=== PATIENT | female | born 2000 | race Caucasian/White ===

== ENCOUNTER 2022-04-09 12:33 | Emergency (ER) | payer OTHER ==
[~2022-04-09] VITALS: Ht 157.5 cm; Wt 81.8 kg
[2022-04-09] MEDS ORDERED: MULTTAB20 PO (12:43)
[2022-04-09] MEDS ORDERED: PEPC1TAB5 PO (12:43)
[2022-04-09 17:39] LABS: HEMATOCRIT 33.4 % (36.0-47.0); HEMOGLOBIN 10.8 g/dl (12.0-15.5); MEAN CORPUSCULAR HGB CONC 32.3 g/dl (32.0-36.5); MEAN CORPUSCULAR VOLUME 83.5 fl (80.0-96.0); PLATELET COUNT, AUTOMATED 268 10^3/uL (150-450); WHITE BLOOD COUNT 13.9 10^3/uL (4.0-10.0)
[2022-04-09 18:02] LABS: BLOOD UREA NITROGEN 8 MG/DL (7-18); CALCIUM LEVEL 9.1 MG/DL (8.5-10.1); CARBON DIOXIDE LEVEL 24 MEQ/L (21-32); CHLORIDE LEVEL 109 MEQ/L (98-107); CREATININE FOR GFR 0.53 MG/DL (0.55-1.30); FREE T4 0.66 NG/DL (0.76-1.46); GLOMERULAR FILTRATION RATE > 60.0 (>60); GLUCOSE, FASTING 101 MG/DL (70-100); POTASSIUM SERUM 4.1 MEQ/L (3.5-5.1); SODIUM LEVEL 138 MEQ/L (136-145)
[2022-04-09 18:05] LABS: ATYPICAL LYMPH 1 % (0-5); BASOPHILS 1 % (0-1); LYMPHOCYTES 16 % (16-44); MONOCYTES 8 % (0-5); NEUTROPHILS 74 % (28-66)
[2022-04-09 18:06] LABS: PLATELET ESTIMATE NORMAL (NORMAL)
[2022-04-09] MEDS ORDERED: NS 1,000 ML IV ONE (18:20)
[2022-04-09 19:10] VITALS: BP 129/72
== END 2022-04-09 19:12 | disposition home or self-care (01) ==
LOC: M ED 12:33
DX: R42 Dizziness and giddiness (principal); R00.2 Palpitations

== ENCOUNTER 2022-05-30 22:49 | Outpatient (CLI) | payer OTHER ==
[~2022-05-30] VITALS: Ht 157.5 cm; Wt 89.1 kg
[~2022-05-30 22:49] MED LIST: MULTTAB20 PO; PEPC1TAB5 PO
[2022-05-30 23:05] VITALS: BP 134/79
[2022-05-31 00:24] VITALS: BP 147/92
[2022-05-31 00:39] VITALS: BP 136/82
== END 2022-05-31 00:50 | disposition home or self-care (01) ==
LOC: M LDO 22:49
PROVIDERS: ATTEND Obstetrics & Gynecology
DX: O47.1 False labor at or after 37 completed weeks of gestation (principal); Z3A.38 38 weeks gestation of pregnancy; O99.613 Diseases of the digestive system complicating pregnancy, third trimester; K21.9 Gastro-esophageal reflux disease without esophagitis
CPT/HCPCS: 59025; G0463

== ENCOUNTER 2022-05-31 05:30 | Inpatient (IN) | payer OTHER ==
[~2022-05-31] VITALS: Ht 157.5 cm; Wt 89.1 kg
[2022-05-31] VITALS (31 sets, daily range): BP systolic 80–218; BP diastolic 44–113
[2022-05-31] MEDS ORDERED: HOME MED LIST COMPLETE! XX SCH (05:55)
[2022-05-31] MEDS ORDERED: TRANEXAMIC ACID INJection 1,000 MG in NS 100 ML IV PRN (06:30)
[2022-05-31] MEDS ORDERED: METHYLERGONOVINE MALEATE 0.2 MG/ML VIAL (J2210) IM PRN (06:30)
[2022-05-31] MEDS ORDERED: LR 1,000 ML IV SCH (06:30)
[2022-05-31] MEDS ORDERED: OXYTOCIN INJ 10 UNITS/ML VIAL (J2590) IV PRN (06:30)
[2022-05-31] MEDS ORDERED: LACTATED RINGER'S 1000 ML IV ONE (06:30)
[2022-05-31] MEDS ORDERED: OXYTOCIN DRIP 30 UNITS in IV 1 EA IV PRN ×4 (06:30)
[2022-05-31 06:48] LABS: MEAN CORPUSCULAR HEMOGLOBIN 23.9 pg (27.0-33.0); MEAN CORPUSCULAR HGB CONC 31.4 g/dl (32.0-36.5); MEAN CORPUSCULAR VOLUME 76.1 fl (80.0-96.0); PLATELET COUNT, AUTOMATED 322 10^3/uL (150-450); WHITE BLOOD COUNT 24.8 10^3/uL (4.0-10.0)
[2022-05-31] MEDS ORDERED: FENTANYL 2MCG/ML ROPIVACAINE 0.2% IN 0.9% NACL 100ML IVBAG As Ordered ONE (07:21)
[2022-05-31] MEDS ORDERED: ePHEDrine SULFATE 25 MG/5 ML(5MG/ML) SYRINGE IVP PRN (08:10)
[2022-05-31] MEDS ORDERED: FENTANYL/ROPIVACAINE/NACL BAG 100 ML EPIDURAL SCH (08:10)
[2022-05-31] MEDS ORDERED: LR 500 ML IV PRN (08:10)
[2022-05-31] MEDS ORDERED: ONDANSETRON 4MG 2ML VIAL IV PRN (08:10)
[2022-05-31] MEDS ORDERED: EPIDURAL/PCA KEYS XX PRN (08:10)
[2022-05-31] MEDS ORDERED: diphenhydrAMINE 50MG/ML VIAL (J1200) IV PRN (08:10)
[2022-05-31] MEDS ORDERED: NALOXONE INJ 0.4MG/1ML VIAL (J2310 PER 1MG) IV PRN (08:10)
[2022-05-31] MEDS ORDERED: OXYTOCIN 30 UNITS IN 0.9% NaCl 500ML IV BAG (J2590) As Ordered ONE (09:37)
[2022-05-31] MEDS ORDERED: METHYLERGONOVINE MALEATE 0.2 MG TAB PO PRN (11:45)
[2022-05-31] MEDS ORDERED: DIBUCAINE 1% OINTMENT 30GM TOP PRN (11:45)
[2022-05-31] MEDS: ACETAMINOPHEN TAB 650MG DOSE (2X325MG) PO PRN (17:36)
[2022-05-31] MEDS: DOCUSATE SODIUM 100MG CAPSULE PO PRN (17:51)
[2022-06-01] MEDS: IBUPROFEN 800 MG TAB PO PRN ×2 (05:25→14:03)
[2022-06-01 06:19] VITALS: BP 130/77
[2022-06-01] MEDS ORDERED: PRENATAL VITAMINS CHEWABLE TABLET PO SCH (09:00)
[2022-06-01] MEDS: DOCUSATE SODIUM 100MG CAPSULE PO PRN (09:20)
[2022-06-01 18:00] VITALS: BP 121/61
[2022-06-01] MEDS: ACETAMINOPHEN TAB 650MG DOSE (2X325MG) PO PRN (23:36)
[2022-06-02] MEDS: ACETAMINOPHEN TAB 650MG DOSE (2X325MG) PO PRN (03:40)
[2022-06-02 06:30] VITALS: BP 135/83
[2022-06-02] MEDS ORDERED: ACET1TAB55 PO (06:41)
[2022-06-02] MEDS ORDERED: COLA100C5 PO (06:41)
[2022-06-02] MEDS ORDERED: IBUP80TA PO (06:41)
[2022-06-02] MEDS ORDERED: MEASLES,MUMPS,RUBELLA VACCINE INJ (MMR-II) (90707) SC.IMMUN ONE (09:00)
== END 2022-06-02 12:50 | disposition home or self-care (01) | DRG 807 ==
LOC: M LDO 05:30 → M LDI 06:24 → M OBS 13:10
PROVIDERS: ADMIT Obstetrics & Gynecology; ATTEND Registered Nurse
PROC: 10E0XZZ Delivery of Products of Conception, External Approach (ICD-10-PCS; principal; 2022-05-31)
DX: O80 Encounter for full-term uncomplicated delivery (principal); Z37.0 Single live birth; Z3A.38 38 weeks gestation of pregnancy